=== PATIENT | male | born 1960 | race Caucasian/White ===

== ENCOUNTER 2019-10-26 11:52 | Day surgery (SDC) | payer OTHER ==
[~2019-10-26] VITALS: Ht 185.4 cm; Wt 97.5 kg
--- NOTE | ~2019-10-26 | OR ---
[facility] [address], [place] [address] Draft DATE OF OPERATION: 10/26/2019 SURGEON: Anuj Dubois MD PREOPERATIVE DIAGNOSES: 1. Family history of colon cancer (father). 2. History of sigmoid polyp in 2009. POSTOPERATIVE DIAGNOSES: Extensive diverticulosis of colon. No evidence of polyps or cancer. PROCEDURE PERFORMED: Total colonoscopy to cecum. ANESTHESIA: Intravenous sedation fentanyl 200 mcg and Versed 6 mg (total). INDICATIONS: This 58-year-old white man is a patient of Dr. Noonan and is known to have family history of colon cancer in his father. The patient underwent colonoscopy in 2009, at which time, he was found to have an adenomatous polyp of the sigmoid colon. He is symptom free, having no bleeding, diarrhea, or constipation problems. He is admitted to undergo colonoscopy for surveillance. He understands risks of bleeding, infection, and perforation and wished to proceed. FINDINGS: The prep was adequate with irrigation. Complete colonoscopy was undertaken to the cecum. The ileocecal valve and appendiceal orifice were well identified. He had extensive diverticula of the sigmoid and left colon. There was no sign of polyps, colitis, or cancer. DESCRIPTION OF PROCEDURE: The patient was brought to the endoscopy suite and placed in lateral decubitus position, given intravenous sedation to the point of slurred speech and nystagmus. Digital rectal examination was normal. An Olympus video colonoscope was passed in the rectum and manipulated throughout the colon, ultimately intubating the cecum. Irrigation was required for good visualization throughout. The appendiceal orifice was easily identified and the ileocecal valve was as well. The scope was withdrawn from the cecum and careful examination upon withdrawal PATIENT NAME: DAVID MILLS Arnulfo OPERATIVE REPORT DATE OF : 56 REPORT #: [id number] PHYSICIAN: ANUJ DUBOIS MD PCP: DERIK NOONAN DO REPORT IS CONFIDENTIAL AND NOT TO BE RELEASED WITHOUT AUTHORIZATION [facility] [address] [place] [id number] Draft of scope showed no sign of polyps, only extensive diverticuli as had been seen upon passage of the scope. Retroflexed view of the rectum was normal. Scope was removed and the patient was taken to recovery room in good condition. CONCLUDING DIAGNOSIS: Extensive diverticulosis. PLAN: Recommend repeat colonoscopy based on family history in 5 years. A high-fiber diet would be beneficial regarding the diverticulosis. He will return to the ongoing care of Dr. Noonan. MD BRENDA De Paz/TAWNYL /[id number] cc: Derik Noonan DO Copies: DERIK NOONAN DO ~ PATIENT NAME: DAVID MILLS OPERATIVE REPORT DATE OF : 56 REPORT #: [id number] PHYSICIAN: ANUJ DUBOIS MD PCP: DERIK NOONAN DO REPORT IS CONFIDENTIAL AND NOT TO BE RELEASED WITHOUT AUTHORIZATION
[~2019-10-26 11:52] MED LIST: HYDROCHLOROTH12.5 M1 PO
[2019-10-26] MEDS ORDERED: ALLOPURINOL300 MG PO (12:13)
[2019-10-26] MEDS ORDERED: LISINOPRIL-HCT1 EAC2 PO (12:14)
[2019-10-26] MEDS ORDERED: ANDROGEL2.5 GM TD (12:15)
[2019-10-26] MEDS ORDERED: SIMVASTATIN40 MG PO (12:15)
[2019-10-26] MEDS ORDERED: LISINOPRIL-HCT1 EACH PO (12:15)
--- NOTE | 2019-10-26 13:51 | NUR ---
10/26/19 1351 Poppy Robles 1328 PT ARRIVED IN PACU SLEEPY. ABD FIRM. ENCOURAGED TO PASS FLATUS. 1345 SITTING UP IN BED SIPPING ON WATER. C/O CRAMPING IN ABD. ENCOURAGED TO PASS FLATUS.
== END 2019-10-26 14:25 | disposition home or self-care (01) ==
LOC: OPS 11:52 → DS 11:56 → OPS 13:00
PROVIDERS: Surgery
PROC: 0DJD8ZZ Inspection of Lower Intestinal Tract, Via Natural or Artificial Opening Endoscopic (ICD-10-PCS; principal; 2019-10-26 13:00)
DX: Z12.11 Encounter for screening for malignant neoplasm of colon (principal); K57.30 Diverticulosis of large intestine without perforation or abscess without bleeding; I10 Essential (primary) hypertension; Z86.010 Personal history of colon polyps; Z80.0 Family history of malignant neoplasm of digestive organs
CPT/HCPCS: 99153; G0500; J2250; J3010; J7121